=== PATIENT | male | born 1970 | race Caucasian/White ===

== ENCOUNTER 2020-04-20 05:17 | Emergency (ER) | payer OTHER ==
[~2020-04-20] VITALS: Ht 180.3 cm; Wt 79.2 kg
--- OUTSIDE RECORDS SUMMARY | 2020-04-20 05:38 | XMS ---
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 E.Nadia VISIT COUNT (12 MO.) 1 [facility] 4 [facility] TOTAL 6 NOTE: Visits indicate total known visits. ED/UCC VISIT TRACKING (12 MO.) 04/20/2020 05:18 MARY ANN Richardson TYPE: Emergency COMPLAINT: - ABDOMINAL BLEEDING 04/04/2020 22:18 [facility] [place] TYPE: Emergency DIAGNOSES: - Hematuria - Epistaxis - Rectal Bleed - blood coming from multiple places, urine, nose, like blood coming out - Hemorrhage of anus and rectum [facility]2020 14[facility] DIAGNOSES: - Hemorrhage of anus and rectum - Urinary tract infection, site not specified - Rectal Bleed - blood in stool - Congenital cirrhosis (of liver) [facility]2020 [facility] DIAGNOSES: - Liver disease, unspecified 01/23/2020 11:50 [facility] TYPE: Emergency DIAGNOSES: - Laceration without foreign body of left hand, initial encounter - Hand Laceration - puncture wound x12 days 10/26/2019 06:10 [facility] TYPE: Emergency DIAGNOSES: - Acute cystitis without hematuria - Pyuria - Drug-induced hypoglycemia without coma - Acute and subacute hepatic failure without coma - Hepatic failure, unspecified without coma - Encephalopathy, unspecified - Fall - Adverse effect of insulin and oral hypoglycemic [antidiabetic] drugs, initial encounter - Altered Mental Status INPATIENT VISIT TRACKING (12 MO.) 04/04/2020 22:18 [facility] TYPE: Medical Surgical DIAGNOSES: - 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 - Chronic kidney disease, stage 3a - Type 2 diabetes mellitus without complications - Chronic kidney disease, stage 3a - Hemorrhage of anus and rectum - Gastrointestinal hemorrhage, unspecified 03/09/2020 14:25 [facility] TYPE: Medical Surgical DIAGNOSES: - Hypo-osmolality and hyponatremia - Sepsis, unspecified organism - Hemorrhage of anus and rectum - Gastro-esophageal reflux disease without esophagitis - Chronic kidney disease, unspecified - Cough - Unspecified cirrhosis of liver - Generalized enlarged lymph nodes - 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 - Hepatic failure, unspecified without coma - Chronic kidney disease, stage 2 (mild) - Acute kidney failure, unspecified - Type 2 diabetes mellitus without complications - Urinary tract infection, site not specified - Congenital cirrhosis (of liver) 10/26/2019 06:10 [facility] [place] TYPE: Medical Surgical DIAGNOSES: - Hepatic failure, unspecified without coma - Acute cystitis without hematuria - Congenital cirrhosis (of liver) - Acute and subacute hepatic failure without coma - Encephalopathy, unspecified - Adverse effect of insulin and oral hypoglycemic [antidiabetic] drugs, initial encounter - Drug-induced hypoglycemia without coma [email or web address]
[2020-04-20] MEDS ORDERED: CONSTULOSE10 GM/15 M PO (06:19)
[2020-04-20] MEDS ORDERED: XIFAXAN550 MG PO (06:19)
[2020-04-20] MEDS ORDERED: OMEPRAZOLE20 MG PO (06:20)
[2020-04-20] MEDS ORDERED: HUMALOG100 UNIT/1 (06:21)
[2020-04-20] MEDS ORDERED: LANTUS100 UNITS/ SUB-Q (06:21)
[2020-04-20] MEDS ORDERED: ALDACTONE25 MG PO (06:22)
[2020-04-20] MEDS ORDERED: LASIX20 MG PO (06:23)
--- NOTE | 2020-04-20 13:07 | EKG ---
[facility] [address] [place], [place] [address] Signed Sinus rhythm with premature atrial complexes Nonspecific T wave abnormality Prolonged QT Abnormal ECG No previous ECGs available Confirmed by BESSY ALCANTARA DO ([id number]) on 04/20/2020 1:07:04 PM Electronically Signed By: BESSY ALCANTARA DO 04/20/20 1307 PATIENT NAME: BENJIE CARLOS Electrocardiogram DATE OF : 68 PHYSICIAN: BESSY ALCANTARA DO REPORT #: [id number] REPORT IS CONFIDENTIAL AND NOT TO BE RELEASED WITHOUT AUTHORIZATION
== END 2020-04-20 10:55 | disposition short-term general hospital (02) ==
LOC: ED 05:17
DX: T68.XXXA Hypothermia, initial encounter (principal); R41.82 Altered mental status, unspecified; I85.00 Esophageal varices without bleeding; G93.41 Metabolic encephalopathy; K92.2 Gastrointestinal hemorrhage, unspecified; Z88.8 Allergy status to other drugs, medicaments and biological substances; Z79.899 Other long term (current) drug therapy; Z79.4 Long term (current) use of insulin
CPT/HCPCS: 36430; 36600; 51702; 70450; 71045; 80053; 81001; 82140; 82803; 83690; 85025; 85027; 85610; 85730; 86850; 86900; 86901; 86920; 94003; 99285-25; J2354; J2704; J2765; J7030; J7050